=== PATIENT | male | born 1960 | race African-American/Black ===

== ENCOUNTER 2019-08-24 22:31 | Emergency (ER) | payer OTHER ==
[~2019-08-24] VITALS: Ht 175.3 cm; Wt 74.8 kg
[~2019-08-24 22:31] MED LIST: BLOOD PRESSURE MED PO; NORVASC 2.5 MG2.5 M1 PO
[2019-08-24] MEDS ORDERED: PROAIR HFA8.5 GM INH (22:40)
[2019-08-24] MEDS ORDERED: METFORMIN HCL500 M3 PO (22:40)
[2019-08-24] MEDS ORDERED: LIPITOR 20 MG T20 M1 PO (22:40)
[2019-08-24 23:50] VITALS: BP 145/94
== END 2019-08-24 23:50 | disposition home or self-care (01) ==
LOC: M.ERS 22:31
DX: I10 Essential (primary) hypertension (principal); E11.9 Type 2 diabetes mellitus without complications; E78.00 Pure hypercholesterolemia, unspecified